=== PATIENT | male | born 1975 | race Caucasian/White ===

== ENCOUNTER → 2016-06-29 | Outpatient (CLI) | payer BC ==
--- NOTE | 2016-06-29 12:08 | DIAGNOSTIC IMAGING REPORT ---
RENAL ULTRASOUND HISTORY: Generalized abdominal pain. COMPARISON: None. FINDINGS: Right kidney: 11.3 cm. No hydronephrosis. Normal corticomedullary differentiation and cortical thickness. Left kidney: 11.3 cm. No hydronephrosis. Normal corticomedullary differentiation and cortical thickness. Bladder: No bladder wall thickening. The bilateral ureteral jets were identified. IMPRESSION: Normal renal ultrasound. Electronically signed by: Austen Law M.D. 06/29/2016 12:07 PM Dictated Date/Time: 06/29/2016 12:06 PM
== END | disposition home or self-care (01) ==
LOC: C.ULTRBC 11:26
PROVIDERS: ATTEND Family Medicine
DX: R10.9 Unspecified abdominal pain (principal)